=== PATIENT | female | born 1990 | race Caucasian/White ===

== ENCOUNTER 2016-07-27 10:13 | Day surgery (SDC) | payer BC ==
[~2016-07-27] VITALS: Ht 167.6 cm; Wt 69.4 kg
[~2016-07-27 10:13] MED LIST: ENDOCET 5-3251 EACH PO; IBUPROFEN800 MG PO; PRENATAL TABLE1 EAC3 PO
[2016-07-27 10:50] LABS: HEMATOCRIT 42.3 % (36.0-46.0); MCH 28.5 PG (29.0-34.0); MCHC 33.3 G/DL (30.0-36.0); MCV 85.6 FL (83-99); PLATELET COUNT 144 K/uL (156-360); RBC DIS.WIDTH-CV 13.2 % (11.8-14.6); RBC DIS.WIDTH-SD 40.1 % (39-53); RED BLOOD COUNT 4.94 M/uL (3.80-5.20); WHITE BLOOD COUNT 18.2 K/uL (4.1-10.2)
[2016-07-27 10:57] LABS: CHLORIDE 101 mEq/L (99-109)
[2016-07-27 10:58] LABS: POTASSIUM 4.2 mEq/L (3.7-5.4); SODIUM 139 mEq/L (136-147)
[2016-07-27 11:00] LABS: GLUCOSE 108 mg/dL (70-99)
[2016-07-27 11:01] LABS: ANION GAP 11 MEQ/L (2-14)
[2016-07-27 11:02] LABS: TOTAL BILIRUBIN 1.7 mg/dL (0.0-1.0)
[2016-07-27 11:03] LABS: ALKALINE PHOSPHATASE 64 IU/L (3-129); GFR ESTIMATE (CALCULATED) > 59 mL/min/
[2016-07-27 11:05] LABS: UREA NITROGEN (BUN) 11 mg/dL (9-23)
[2016-07-27 11:13] LABS: QUANTITATIVE HCG < 4.0 MIU/ML
[2016-07-27 11:44] LABS: LIPASE 9 U/L (1.0-51.0)
[2016-07-27 12:59] LABS: ADD MIUA? YES; BILIRUBIN NEGATIVE; BLOOD NEGATIVE; COLOR AMBER ((YELLOW)); GLUCOSE (STRIP) NEGATIVE; KETONES 20; LEUKOCYTES NEGATIVE; NITRITE NEGATIVE; PROTEIN (STRIP) 30; SPECIFIC GRAVITY 1.033 (1.000-1.030); UROBILINOGEN 0.2 MG/DL (0.2-1.0)
[2016-07-27] MEDS ORDERED: PRENATAL TABLE1 EAC3 PO (13:23)
[2016-07-27 14:25] LABS: BACTERIA NONE SEEN /HPF; EPITHELIAL CELLS RARE /HPF; MUCUS TRACE /LPF; UCUL ADDED? NO; WHITE BLOOD CELLS 0-5 /HPF (0-5)
[2016-07-27] MEDS ORDERED: PERCOCET 5/31 TABLET PO (16:57)
[2016-07-27] MEDS ORDERED: COLACE100 MG PO (16:57)
[2016-07-27 17:55] VITALS: BP 125/69
[2016-07-27 19:48] VITALS: BP 102/59
== END 2016-07-27 20:47 | disposition home or self-care (01) ==
LOC: EME 10:13 → SDC 14:38 → 2SOUTH 16:22 → 2EAST 17:48
PROC: 0DTJ4ZZ Resection of Appendix, Percutaneous Endoscopic Approach (ICD-10-PCS; principal; 2016-07-27)
DX: K35.80 Unspecified acute appendicitis (principal); Z88.0 Allergy status to penicillin
CPT/HCPCS: 74177; 80053; 81003; 83690; 84702; 85027; 87070; 87075; 87205; 88304; 99281; 99285; G0378; J0330; J1100; J1885; J1956; J2270; J2405; J3010; J7030; S0030

== ENCOUNTER 2017-08-11 06:29 | Inpatient (IN) | payer BC, OTHER ==
[~2017-08-11] VITALS: Ht 160 cm; Wt 88.0 kg
[2017-08-11] VITALS (7 sets, daily range): BP systolic 126–142; BP diastolic 60–87
[~2017-08-11 06:29] MED LIST changes: +COLACE100 MG PO; +PERCOCET 5/31 TABLET PO
[2017-08-11] MEDS ORDERED: IBUPROFEN800 MG PO (08:47)
[2017-08-11 09:44] LABS: BASOPHIL (%) 0.1 % (0-1); EOSINOPHIL (%) 0 % (0-5); HEMATOCRIT 36.4 % (36.0-46.0); HEMOGLOBIN 11.3 G/DL (11.9-15.5); IMMATURE GRANULOCYTE (%) 0.8 % (0.0-0.7); LYMPHOCYTE (%) 8.9 % (15-42); MCH 28.3 PG (29.0-34.0); MONOCYTE (%) 2.3 % (3-12); MONOCYTE COUNT 0.3 K/uL (0-0.8); NEUTROPHIL (%) 87.9 % (45-76); NEUTROPHIL COUNT 10.1 K/uL (1.8-6.4); PLATELET COUNT 89 K/uL (156-360); RBC DIS.WIDTH-SD 49.7 % (39-53); WHITE BLOOD COUNT 11.5 K/uL (4.1-10.2)
[2017-08-12 06:37] LABS: HEMATOCRIT 32.8 % (36.0-46.0); HEMOGLOBIN 10.4 G/DL (11.9-15.5); MCH 28.5 PG (29.0-34.0); MCHC 31.7 G/DL (30.0-36.0); MCV 89.9 FL (83-99); PLATELET COUNT 87 K/uL (156-360); RBC DIS.WIDTH-CV 15.4 % (11.8-14.6); RBC DIS.WIDTH-SD 49.8 % (39-53); RED BLOOD COUNT 3.65 M/uL (3.80-5.20); WHITE BLOOD COUNT 9.6 K/uL (4.1-10.2)
== END 2017-08-13 12:41 | disposition home or self-care (01) | DRG 775 ==
LOC: LDRP-OP 06:29 → 2WEST 06:30 → LDRP-OP 09:45 → 2WEST 08-13 12:41 → LDRP-OP 10-04 15:59
PROVIDERS: Advanced Practice Midwife; Obstetrics & Gynecology Obstetrics
DX: O48.0 Post-term pregnancy (principal); O43.123 Velamentous insertion of umbilical cord, third trimester; Z3A.41 41 weeks gestation of pregnancy; Z37.0 Single live birth
CPT/HCPCS: 85025; 85027; J7120